=== PATIENT | male | born 1950 | race Caucasian/White ===

== ENCOUNTER 2016-10-21 00:47 | Observation (INO) | payer MEDICARE, OTHER ==
--- NOTE | 2016-10-21 02:04 | ED PDOC ---
HPI: Chest Pain Time Seen by Provider: 10/21/16 00:56 Chief Complaint (Nursing): Chest Pain History Per: Patient History/Exam Limitations: no limitations Onset/Duration Of Symptoms: Mins (5) Current Symptoms Are (Timing): Gone Now Severity: Moderate Quality: "Pain" Associated Symptoms: Nausea. denies: Dyspnea, Diaphoresis, Syncope Modifying Factors: None Exacerbating Factors: None Alleviating Factors: None Additional History Per: Patient Additional Complaint(s): 66 y/o male with PMHx HTN, DM, CAD with 4-vessel CABG years ago, who complains of anterior chest pain x5 minutes and bilateral arm pain that presented 20 minutes ago and is now totally resolved. He complains of some mild persisting nausea that presented with the chest pain. Pain presented suddenly and was not associated with shortness of breath, back pain, abdominal pain, diarrhea, or syncope. No other complaints at this time. Past Medical History Vital Signs: Last Vital Signs Temp 97.5 F L 10/21/16 00:54 Pulse 75 10/21/16 02:45 Resp 16 10/21/16 00:54 BP 161/101 H 10/21/16 00:54 Pulse Ox 100 10/21/16 02:45 - Medical History PMH: CAD, HTN, Hyperlipidemia - Surgical History Surgical History: CABG, Coronary Stent - Family History Family History: States: Unknown Family Hx - Social History Current smoker - smoking cessation education provided: Yes Alcohol: None Drugs: Denies - Home Medications Home Medications: Ambulatory Orders Medication Instructions Recorded Atorvastatin [Lipitor] 20 mg PO DAILY 10/21/16 Clonazepam [Klonopin] 0.5 mg PO BID 10/21/16 Glimepiride [amaRYL] 2 mg PO DAILY 10/21/16 Lisinopril [Zestril] 5 mg PO DAILY 10/21/16 MetFORMIN [glucoPHAGE] 1,000 mg PO BID 10/21/16 Metoprolol Tartrate [Lopressor] 50 mg PO DAILY 10/21/16 Prasugrel [Effient] 10 mg PO DAILY 10/21/16 Ranolazine [Ranexa] 500 mg PO BID 10/21/16 - Allergies Allergies/Adverse Reactions: Allergies Allergy/AdvReac Type Severity Reaction Status Date / Time No Known Allergies Allergy Verified 02/25/15 03:14 AVA Risk Score for UA/NSTEMI - AVA Risk Score Age > 64: YES 3 or more CAD Risk Factors: YES Known CAD (Stenosis greater than 50%): NO Aspirin use in past 7 days: NO Severe Angina: NO EKG ST changes greater than 0.5mm: NO Positive Cardiac Marker: NO AVA Score: 2 Risk %: 8% Wells Criteria for PE - [place] Criteria for Pulmonary Embolism Clinical Signs and Symptoms of DVT: No P.E is #1 Diagnosis, or Equally Likely: No Heart Rate >100: No Immobilization at least 3 days;Surgery previous 4 weeks: No Previous, objectively diagnosed PE or DVT: No Hemoptysis: No Malignancy w/treatment within 6 months, or palliative: No Total Score: 0 Review of Systems ROS Statement: Except As Marked, All Systems Reviewed And Found Negative Constitutional: Negative for: Fever Cardiovascular: Positive for: Chest Pain Respiratory: Negative for: Shortness of Breath Gastrointestinal: Positive for: Nausea. Negative for: Vomiting, Abdominal Pain , Diarrhea Physical Exam - Reviewed Nursing Documentation Reviewed: Yes Vital Signs Reviewed: Yes - Physical Exam Appears: Positive for: Well, Non-toxic, No Acute Distress Head Exam: Positive for: ATRAUMATIC, NORMAL INSPECTION, NORMOCEPHALIC Skin: Positive for: Normal Color, Warm, DRY Eye Exam: Positive for: EOMI, Normal appearance, PERRL ENT: Positive for: Normal ENT Inspection Neck: Positive for: Normal, Painless ROM Cardiovascular/Chest: Positive for: Regular Rate, Rhythm Respiratory: Positive for: CNT, Normal Breath Sounds Gastrointestinal/Abdominal: Positive for: Normal Exam, Bowel Sounds, Soft Back: Positive for: Normal Inspection Extremity: Positive for: Normal ROM Neurologic/Psych: Positive for: Alert, Oriented - Laboratory Results Result Diagrams: 10/21/16 01:20 10/21/16 01:20 - ECG ECG Rhythm: Positive for: Normal QRS, Normal ST Segment, Sinus Rhythm. Negative for: ST/T Changes Interpretation Of ECG: EKG: NSR, rate 75. Normal QRS. Nonspecific T-Wave changes in lateral leads. Rate: 75 O2 Sat by Pulse Oximetry: 100 (RA) Pulse Ox Interpretation: Normal Medical Decision Making Medical Decision Making: Initial Impression: Acute Coronary Syndrome Initial Plan: - Labs - EKG - CXR - ASA 325 mg PO Scribe Attestation: Documented by Quynh Villalba, acting as a scribe for Onur Cisneros MD. MD Hillirad Attestation: All medical record entries made by the Arminda were at my direction and personally dictated by me. I have reviewed the chart and agree that the record accurately reflects my personal performance of the history, physical exam, medical decision making, and the department course for this patient. I have also personally directed, reviewed, and agree with the discharge instructions and disposition. Disposition - Clinical Impression Clinical Impression: Chest pain - Patient ED Disposition Is Patient to be Admitted: Yes Discussed With DrAle: Guillermina Nash Doctor Will See Patient In The: ED Counseled Patient/Family Regarding: Studies Performed, Diagnosis - Disposition Disposition Time: 03:36 Condition: FAIR - Pt Status Changed To: Hospital Disposition Of: Observation - POA Present On Arrival: Poor Glycemic Control Core Measure Indicators: Chest Pain
[2016-10-21 02:11] LABS: BASO % 0.5 % (0.0-2.0); EOS # 0.1 K/uL (0.0-0.7); EOS % 1.9 % (0.0-4.0); HEMATOCRIT 48.2 % (35.0-51.0); LYMPH # 2.7 K/uL (1.0-4.3); LYMPH % 38.4 % (20.0-40.0); MEAN CELL VOLUME 89.7 fl (80.0-94.0); MEAN CORPUSCULAR HGB CONC 33.4 g/dL (33.0-37.0); MEAN PLATELET VOLUME 10.1 fl (7.2-11.7); MONO # 0.6 K/uL (0.0-0.8); MONO % 8.9 % (0.0-10.0); NEUT # 3.5 K/uL (1.8-7.0); NEUT % 50.3 % (50.0-75.0); RED CELL DISTRIBUTION WIDTH 12.9 % (11.5-14.5)
[2016-10-21 02:19] LABS: CHLORIDE 103 mmol/L (98-107)
[2016-10-21 02:20] LABS: SODIUM 140 mmol/l (132-148)
[2016-10-21 02:23] LABS: BLOOD UREA NITROGEN 16 mg/dl (9-20); CARBON DIOXIDE 23 mmol/L (22-30); GFR AFRICAN-AMERICAN > 60; GLUCOSE,RANDOM 244 mg/dL (75-110)
[2016-10-21 03:32] LABS: BLOOD UREA NITROGEN 16 mg/dl (9-20); CARBON DIOXIDE 23 mmol/L (22-30); CHLORIDE 106 mmol/L (98-107); GFR AFRICAN-AMERICAN > 60; GLUCOSE,RANDOM 231 mg/dL (75-110); POTASSIUM 4.5 MMOL/L (3.6-5.0); SODIUM 143 mmol/l (132-148)
[2016-10-21 04:04] LABS: POTASSIUM 5.3 MMOL/L (3.6-5.0)
--- NOTE | 2016-10-21 04:53 | CP.PCM.HP ---
History of Present Illness - History of Present Illness History of Present Illness: CC: Chest pain HPI: This is a 66 y/o male with MHx significant for HTN, DM2, and known CAD with CABG and stenting in the past who came to the ER this evening about half an hour after an episode of CP. Per patient, the CP lasted about 5 min and was associated with b/l pain in arms as well as nausea. There was no SOB/ palpitations/diaphoresis, but the nausea persisted. Denies other symptoms like cough f/c/n/v/d. ROS: 14 systems reviewed, negative other than HPI MHx: HTN, DM2, CAD SHx: CABG Allergies: NKDA Medications: As per med rec Family Hx: Patient does not provide any relevant family hx Social Hx: Lives with family, denies tobacco or EtOH Surrogate Decision Maker: Brother, contact info in chart Present on Admission - Present on Admission Any Indicators Present on Admission: No Past Patient History - Infectious Disease Hx of Infectious Diseases: None - Past Social History Alcohol: None Drugs: Denies - CARDIAC Hx Hypertension: Yes - NEUROLOGICAL Hx Neurological Disorder: Yes HX Cerebrovascular Accident: Yes - ENDOCRINE/METABOLIC Hx Endocrine Disorders: Yes Hx Diabetes Mellitus Type 1: Yes - PSYCHIATRIC Hx Substance Use: No - SURGICAL HISTORY Hx Coronary Artery Bypass Graft: Yes Hx Coronary Stent: Yes - ANESTHESIA Hx Anesthesia: Yes Hx Anesthesia Reactions: No Meds Allergies/Adverse Reactions: Allergies Allergy/AdvReac Type Severity Reaction Status Date / Time No Known Allergies Allergy Verified 02/25/15 03:14 Physical Exam - Constitutional Appears: No Acute Distress - Head Exam Head Exam: ATRAUMATIC, NORMOCEPHALIC - Eye Exam Eye Exam: EOMI, PERRL - ENT Exam ENT Exam: Mucous Membranes Moist - Neck Exam Neck exam: Positive for: Full Rom - Respiratory Exam Respiratory Exam: Clear to Auscultation Bilateral, NORMAL BREATHING PATTERN - Cardiovascular Exam Cardiovascular Exam: REGULAR RHYTHM, +S1, +S2 - GI/Abdominal Exam GI & Abdominal Exam: Normal Bowel Sounds, Soft - Extremities Exam Extremities exam: Positive for: full ROM, normal inspection - Neurological Exam Neurological exam: Alert, CN II-XII Intact, Oriented x3 - Psychiatric Exam Psychiatric exam: Normal Affect, Normal Mood - Skin Skin Exam: Dry, Warm Results - Vital Signs Recent Vital Signs: Last Vital Signs Temp 97.5 F L 10/21/16 00:54 Pulse 82 04/03/17 03:50 Resp 16 10/21/16 03:50 BP 150/98 H 10/21/16 03:50 Pulse Ox 99 10/21/16 03:50 - Labs Result Diagrams: 10/21/16 01:20 10/21/16 02:47 - EKG Data EKG Interpreted by: Myself EKG shows normal: Sinus rhythm Rate: Normal - EKG Data EKG comments: lateral TWI - Imaging and Cardiology Chest x-ray Status: Image reviewed by me (Unremarkable) Assessment & Plan (1) Chest pain Assessment and Plan: 66 y/o male with known CAD who comes in with CP. 1) Chest pain/CAD -Obs tele -Serial trops and EKG -Will obtain echo, as no recent one on chart -Cont ASA, Statin, b-brinda, prasugrel, ranexa; prn nitro -Cardiology consult 2) HTN -- cont home medications 3) DM2 -- cont home medications, dm2 diet, SSI 4) DVT PPx -- SQ Heparin Status: Acute (2) HTN (hypertension) Status: Acute (3) DM2 (diabetes mellitus, type 2) Status: Acute (4) DVT prophylaxis Status: Acute
[2016-10-21] MEDS: GlipiZIDE 5 mg SR Tab PO SCH (08:03)
--- NOTE | 2016-10-21 08:26 | CARD ---
APPROVED REPORT EKG Measurement Heart [id number] <Conclusion> Normal sinus rhythm ST & T wave abnormality, consider inferolateral ischemia Abnormal ECG
[2016-10-21] MEDS: Insulin Lispro (humaLOG) 100 Units/ml Inj SC SCH ×5 (08:30→22:04)
--- NOTE | 2016-10-21 08:35 | CARD ---
APPROVED REPORT EKG Measurement Heart [id number] <Conclusion> Normal sinus rhythm T wave abnormality, consider lateral ischemia Abnormal ECG
[2016-10-21] MEDS: Enoxaparin 40 mg Syringe SC SCH (08:49)
[2016-10-21] MEDS ORDERED: Patient's Own Med (Ranolazine [Ranexa] 500 MG) PO SCH (09:00)
--- NOTE | 2016-10-21 09:11 | CP.PCM.CON ---
History of Present Illness - History of Present Illness History of Present Illness: HPI: This is a 66 y/o male with MHx significant for HTN, DM2, and known CAD with CABG and stenting in the past who came to the ER this evening about half an hour after an episode of CP. the CP lasted about 5 min and was associated with b/l pain in arms as well as nausea. There was no SOB/palpitations/diaphoresis, but the nausea persisted. Denies other symptoms like cough f/c/n/v/d. Troponin: neg x 3 EKG: NSR no change from EKG of 2015 PMH: HTN, DM2, CAD CABG Past Patient History - Infectious Disease Hx of Infectious Diseases: None - Past Social History Alcohol: None Drugs: Denies - CARDIAC Hx Hypertension: Yes - NEUROLOGICAL Hx Neurological Disorder: Yes HX Cerebrovascular Accident: Yes - ENDOCRINE/METABOLIC Hx Endocrine Disorders: Yes Hx Diabetes Mellitus Type 1: Yes - PSYCHIATRIC Hx Substance Use: No - SURGICAL HISTORY Hx Coronary Artery Bypass Graft: Yes Hx Coronary Stent: Yes - ANESTHESIA Hx Anesthesia: Yes Hx Anesthesia Reactions: No Meds Home Medications: Home Medication List Medication Instructions Recorded Confirmed Type Aspirin [Adult Low Dose Aspirin EC] 81 mg PO DAILY #1 tablet. 10/22/16 Rx Lisinopril [Zestril] 10 mg PO DAILY tab 10/22/16 Rx Ranolazine [Ranexa] 1,000 mg PO BID 10/22/16 Rx Allergies/Adverse Reactions: Allergies Allergy/AdvReac Type Severity Reaction Status Date / Time No Known Allergies Allergy Verified 02/25/15 03:14 - Medications Medications: Current Medications Aspirin (Aspirin) 325 mg PO DAILY [facility] Last Admin: 10/21/16 08:53 Dose: Not Given Atorvastatin Calcium (Lipitor) 20 mg PO DAILY [facility] Last Admin: 10/21/16 08:50 Dose: 20 mg Clonazepam (Klonopin) 0.5 mg PO BID [facility] Last Admin: 10/21/16 08:48 Dose: 0.5 mg Enoxaparin Sodium (Lovenox) 40 mg SC DAILY [facility] PRN Reason: Protocol Last Admin: 10/21/16 08:49 Dose: 40 mg Glipizide (Glucotrol Xl) 5 mg PO BRK [facility] Last Admin: 10/21/16 08:03 Dose: 5 mg Home Med (Prasugrel [Effient]) 10 mg PO DAILY [facility] Home Med (Ranolazine [Ranexa]) 500 mg PO BID [facility] Insulin Human Lispro (Humalog) 0 units SC ACHS [facility] PRN Reason: Protocol Last Admin: 10/21/16 08:30 Dose: 1 unit Lisinopril (Zestril) 5 mg PO DAILY [facility] Last Admin: 10/21/16 08:49 Dose: 5 mg Metformin HCl (Glucophage) 1,000 mg PO BID [facility] Last Admin: 10/21/16 08:48 Dose: 1,000 mg Metoprolol Tartrate (Lopressor) 50 mg PO DAILY [facility] Last Admin: 10/21/16 08:53 Dose: 50 mg Nitroglycerin (Nitrostat Sl Tab) 0.4 mg SL Q5M PRN PRN Reason: CP Results - Vital Signs Recent Vital Signs: Last Vital Signs Temp 98.6 F 10/21/16 07:20 Pulse 68 10/21/16 07:20 Resp 20 10/21/16 07:20 BP 135/89 10/21/16 07:20 Pulse Ox 98 10/21/16 07:20 - Labs Result Diagrams: 10/22/16 05:40 10/22/16 05:40
--- NOTE | 2016-10-21 10:36 | RAD ---
HISTORY: chest pain COMPARISON: Comparison is made to 02/25/2015 FINDINGS: LUNGS: No active pulmonary disease. PLEURA: No significant pleural effusion identified, no pneumothorax apparent. CARDIOVASCULAR: Normal. OSSEOUS STRUCTURES: No significant abnormalities. VISUALIZED UPPER ABDOMEN: Normal. OTHER FINDINGS: None. IMPRESSION: No active disease.
--- NOTE | 2016-10-21 16:35 | CARD ---
APPROVED REPORT EXAM: Two-dimensional and M-mode echocardiogram with Doppler and color Doppler. Other Information Quality : GoodRhythm : NSR Technically limited study due to body habitus. INDICATION Chest Pain 2D DIMENSIONS IVSd0.88 (0.7-1.1cm)LVDd4.83 (3.9-5.9cm) LVOT Diameter2.53 (1.8-2.4cm)PWd0.98 (0.7-1.1cm) IVSs1.69 (0.8-1.2cm)LVDs3.53 (2.5-4.0cm) FS (%) 26.9 %PWs1.31 (0.8-1.2cm) M-Mode DIMENSIONS Left Atrium (MM)3.50 (2.5-4.0cm)IVSd0.94 (0.7-1.1cm) Aortic Root3.91 (2.2-3.7cm)LVDd5.50 (4.0-5.6cm) Aortic Cusp Exc.1.75 (1.5-2.0cm)PWd1.34 (0.7-1.1cm) IVSs1.41 cmFS (%) 36 % LVDs3.50 (2.0-3.8cm)PWs1.50 cm Mitral Valve MV E Xzhvwnkd29.8cm/sMV DECEL [id number] A Rtptmrjn70.6cm/s MV [id number]/A ratio0.6MVA (PHT)2.19cm2 TDI Lateral E' Peak V7.41cm/sMedial E' Peak V4.32cm/sE/Lateral E'5.9 E/Medial E'10.1 Pulmonary Valve PV Peak Dgofhrdn92.3cm/s LEFT VENTRICLE The left ventricle is normal size. There is mild concentric left ventricular hypertrophy on the 2D study. Left ventricle systolic function is mildly impaired. The Ejection Fraction is - 45%. The inferior and posterior win are very hypokinetic. The other segments of the left ventricle have good contraction. Transmitral Doppler flow pattern is Grade I-abnormal relaxation pattern. No left ventricle thrombus noted on this study. There is no ventricular septal defect visualized. There is no left ventricular aneurysm. There is no mass noted in the left ventricle. RIGHT VENTRICLE The right ventricle is normal size. There is normal right ventricular wall thickness. The right ventricular systolic function is normal. ATRIA The left atrium is mildly dilated on the 2 d study. There is no thrombus suspected in the left atrium. The right atrium size is normal. The interatrial septum is intact with no evidence for an atrial septal defect. AORTIC VALVE The aortic valve is normal in structure and function. No aortic regurgitation is present. There is no aortic valvular stenosis. MITRAL VALVE The mitral valve is normal in structure and function. There is no evidence of mitral valve prolapse. There is no mitral valve stenosis. There is no mitral valve regurgitation noted. TRICUSPID VALVE The tricuspid valve is normal in structure and function. There is trace tricuspid regurgitation. There is no tricuspid valve prolapse or vegetation. There is no tricuspid valve stenosis. PULMONIC VALVE The pulmonary valve is normal in structure and function. There is no pulmonic valvular regurgitation. GREAT VESSELS The aortic root is normal in size. The IVC is normal in size and collapses >50% with inspiration. PERICARDIAL EFFUSION small anterior echo free space There is no pleural effusion. <Conclusion> The left ventricle is normal size. There is mild concentric left ventricular hypertrophy on the 2D study. Left ventricle systolic function is mildly impaired with a LVEF of - 45%. The left atrium is mildly dilated on the 2D study. The mitral, aortic and tricuspid valves are normal. There is trace tricuspid regurgitation.
--- NOTE | 2016-10-21 20:17 | CP.PCM.CON ---
History of Present Illness - History of Present Illness History of Present Illness: CC: Chest pain. HPI: ThisIs a pleasant 66 your gentleman with a past medical history of coronary artery disease, coronary artery bypass surgery, percutaneous coronary intervention, hypertension, diabetes and dyslipidemia who presents with chronic left sided chest pain which is not related to exertion, effort, position or respiration. He does not use nitrates since his insurance does not cover it but does use Ranexa with some relief. He states that this pain has persisted for nearly 2 years since his PCI and cannot find significant relief. He recently travelled to the [facility] and states he was compliant with his medications and diet. An ECG reveals NSR, lateral T wave abnormality, cardiac troponin is negative. He is resting comfortably at the present time but still has pain. Review of Systems - Constitutional Constitutional: Fatigue - EENT Additional comments: Negative. - Cardiovascular Cardiovascular: Chest Pain at Rest, Chest Pain with Activity, Dyspnea, Dyspnea on Exertion - Respiratory Respiratory: Dyspnea, Dyspnea on Exertion - Gastrointestinal Additional comments: Negative. - Genitourinary Additional comments: Negative. - Musculoskeletal Additional comments: Negative. - Integumentary Additional comments: Negative. - Neurological Additional comments: Negative. - Endocrine Endocrine: Fatigue - Hematologic/Lymphatic Additional comments: Negative. Past Patient History - Infectious Disease Hx of Infectious Diseases: None - Past Medical History & Family History Past Medical History?: Yes - Past Social History Smoking Status: Former Smoker Alcohol: None Drugs: Denies - CARDIAC Hx Cardiac Disorders: Yes Hx Angina: Yes Hx Circulatory Problems: Yes Hx Internal Defibrillator: No Hx Pacemaker: No - PULMONARY Hx Respiratory Disorders: No - NEUROLOGICAL Hx Neurological Disorder: Yes - HEENT Hx HEENT Problems: No - RENAL Hx Chronic Kidney Disease: No - ENDOCRINE/METABOLIC Hx Endocrine Disorders: Yes - HEMATOLOGICAL/ONCOLOGICAL Hx Blood Disorders: No - INTEGUMENTARY Hx Dermatological Problems: No - MUSCULOSKELETAL/RHEUMATOLOGICAL Hx Musculoskeletal Disorders: No - GENITOURINARY/GYNECOLOGICAL Hx Genitourinary Disorders: No - PSYCHIATRIC Hx Psychophysiologic Disorder: No - SURGICAL HISTORY Hx Cardiac Catheterization: Yes Hx Coronary Artery Bypass Graft: Yes Hx Coronary Stent: Yes - ANESTHESIA Hx Anesthesia: Yes Hx Anesthesia Reactions: No Meds Allergies/Adverse Reactions: Allergies Allergy/AdvReac Type Severity Reaction Status Date / Time No Known Allergies Allergy Verified 02/25/15 03:14 - Medications Medications: Current Medications Aspirin (Aspirin) 325 mg PO DAILY [facility] Last Admin: 10/21/16 08:53 Dose: Not Given Atorvastatin Calcium (Lipitor) 20 mg PO DAILY [facility] Last Admin: 10/21/16 08:50 Dose: 20 mg Clonazepam (Klonopin) 0.5 mg PO BID [facility] Last Admin: 10/21/16 17:45 Dose: 0.5 mg Enoxaparin Sodium (Lovenox) 40 mg SC DAILY [facility] PRN Reason: Protocol Last Admin: 10/21/16 08:49 Dose: 40 mg Glipizide (Glucotrol Xl) 5 mg PO BRK [facility] Last Admin: 10/21/16 08:03 Dose: 5 mg Home Med (Prasugrel [Effient]) 10 mg PO DAILY [facility] Home Med (Ranolazine [Ranexa]) 500 mg PO BID [facility] Insulin Human Lispro (Humalog) 0 units SC ACHS [facility] PRN Reason: Protocol Last Admin: 10/21/16 17:42 Dose: 1 unit Lisinopril (Zestril) 5 mg PO DAILY [facility] Last Admin: 10/21/16 08:49 Dose: 5 mg Metformin HCl (Glucophage) 1,000 mg PO BID [facility] Last Admin: 10/21/16 17:42 Dose: 1,000 mg Metoprolol Tartrate (Lopressor) 50 mg PO DAILY [facility] Last Admin: 10/21/16 08:53 Dose: 50 mg Nitroglycerin (Nitrostat Sl Tab) 0.4 mg SL Q5M PRN PRN Reason: CP Physical Exam - Constitutional Appears: Well, Non-toxic, No Acute Distress - Head Exam Head Exam: ATRAUMATIC, NORMAL INSPECTION, NORMOCEPHALIC - Eye Exam Eye Exam: Normal appearance Pupil Exam: PERRL - ENT Exam ENT Exam: Mucous Membranes Moist, Normal Exam - Neck Exam Neck exam: Positive for: Normal Inspection - Respiratory Exam Respiratory Exam: Clear to Auscultation Bilateral, NORMAL BREATHING PATTERN - Cardiovascular Exam Cardiovascular Exam: REGULAR RHYTHM, +S1, +S2, Systolic Murmur - GI/Abdominal Exam GI & Abdominal Exam: Soft - Rectal Exam Rectal Exam: Deferred - Extremities Exam Extremities exam: Positive for: normal inspection - Back Exam Back exam: NORMAL INSPECTION - Neurological Exam Neurological exam: Alert, Oriented x3 - Psychiatric Exam Psychiatric exam: Anxious, Depressed - Skin Skin Exam: Dry, Intact, Warm Results - Vital Signs Recent Vital Signs: Last Vital Signs Temp 98.4 F 10/21/16 19:47 Pulse 67 10/21/16 19:47 Resp 20 10/21/16 19:47 BP 157/88 H 10/21/16 19:47 Pulse Ox 96 10/21/16 19:47 - Labs Result Diagrams: 10/21/16 01:20 10/21/16 02:47 Labs: Laboratory Results - last 24 hr 10/21/16 10/21/16 10/21/16 08:03 11:13 16:57 POC Glucose (mg/dL) 223 H 154 H Troponin I 0.0740 Assessment & Plan - Assessment and Plan (Free Text) Assessment: Chest pain Coronary artery disease S/p CABG S/p PCI Hypertension Diabetes Dyslipidemia Plan: Aspirin Effient Ranexa Continue antihypertensive medications Stable cardiac sepulveda for discharge if troponins negative Case d/w Dr. Camargo who agrees Thank you - Date & Time Date: 10/21/16 Time: 13:05
[2016-10-22 00:13] VITALS: RESP 18
[2016-10-22] MEDS: Insulin Lispro (humaLOG) 100 Units/ml Inj SC SCH (06:58)
[2016-10-22 07:13] LABS: BASO % 0.4 % (0.0-2.0); EOS # 0.1 K/uL (0.0-0.7); EOS % 1.6 % (0.0-4.0); HEMATOCRIT 46.2 % (35.0-51.0); LYMPH # 3.1 K/uL (1.0-4.3); LYMPH % 40.7 % (20.0-40.0); MEAN CELL VOLUME 89.7 fl (80.0-94.0); MEAN CORPUSCULAR HEMOGLOBIN 29.2 pg (27.0-31.0); MEAN CORPUSCULAR HGB CONC 32.5 g/dL (33.0-37.0); MEAN PLATELET VOLUME 9.7 fl (7.2-11.7); MONO # 0.7 K/uL (0.0-0.8); MONO % 9.5 % (0.0-10.0); NEUT # 3.7 K/uL (1.8-7.0); NEUT % 47.8 % (50.0-75.0); NRBC % 0.1 % (0.0-0.0); RED CELL DISTRIBUTION WIDTH 13.1 % (11.5-14.5); WHITE BLOOD COUNT 7.6 K/uL (4.8-10.8)
[2016-10-22 07:17] LABS: BLOOD UREA NITROGEN 16 mg/dl (9-20); CALCIUM 9.1 mg/dL (8.4-10.2); CARBON DIOXIDE 22 mmol/L (22-30); CHLORIDE 104 mmol/L (98-107); CHOLESTEROL 171 mg/dL (0-199); GFR AFRICAN-AMERICAN > 60; GLUCOSE,RANDOM 163 mg/dL (75-110); POTASSIUM 4.2 MMOL/L (3.6-5.0); SODIUM 142 mmol/l (132-148)
[2016-10-22 07:22] LABS: PARTIAL THROMBOPLASTIN TIME 26.9 SECONDS (23.3-32.5)
[2016-10-22 07:57] VITALS: BP 159/89; PULSE 65; TEMP 98.5; O2SAT 96
[2016-10-22] MEDS ORDERED: Patient's Own Med (Ranolazine [Ranexa] 1,000 MG) PO SCH (08:00)
[2016-10-22] MEDS: GlipiZIDE 5 mg SR Tab PO SCH (09:00)
[2016-10-22] MEDS: Enoxaparin 40 mg Syringe SC SCH (10:00)
--- NOTE | 2016-10-22 10:21 | CP.PCM.DIS ---
Provider - Provider Date of Admission: 10/21/16 03:35 Attending physician: Guillermina Nash MD Consults: Cardio: Dr Trinidad/Reinaldo Time Spent in preparation of Discharge (in minutes): 35 Diagnosis - Discharge Diagnosis (1) Chest pain Status: Acute (2) CAD (coronary artery disease) Status: Chronic (3) DM2 (diabetes mellitus, type 2) Status: Chronic (4) HTN (hypertension) Status: Acute (5) DVT prophylaxis Status: Acute Hospital Course - Lab Results Lab Results: Most Recent Lab Values WBC 7.6 K/uL (4.8-10.8) 10/22/16 05:40 RBC 5.15 Mil/uL (4.40-5.90) 10/22/16 05:40 Hgb 15.0 g/dL (12.0-18.0) 10/22/16 05:40 Hct 46.2 % (35.0-51.0) 10/22/16 05:40 MCV 89.7 fl (80.0-94.0) 10/22/16 05:40 MCH 29.2 pg (27.0-31.0) 10/22/16 05:40 MCHC 32.5 g/dL (33.0-37.0) L 10/22/16 05:40 RDW 13.1 % (11.5-14.5) 10/22/16 05:40 Plt Count 181 K/uL (130-400) 10/22/16 05:40 MPV 9.7 fl (7.2-11.7) 10/22/16 05:40 Neut % (Auto) 47.8 % (50.0-75.0) L 10/22/16 05:40 Lymph % (Auto) 40.7 % (20.0-40.0) H 10/22/16 05:40 [place] % (Auto) 9.5 % (0.0-10.0) 10/22/16 05:40 Eos % (Auto) 1.6 % (0.0-4.0) 10/22/16 05:40 Baso % (Auto) 0.4 % (0.0-2.0) 10/22/16 05:40 Neut # 3.7 K/uL (1.8-7.0) 10/22/16 05:40 Lymph # 3.1 K/uL (1.0-4.3) 10/22/16 05:40 [place] # 0.7 K/uL (0.0-0.8) 10/22/16 05:40 Eos # 0.1 K/uL (0.0-0.7) 10/22/16 05:40 Baso # 0.0 K/uL (0.0-0.2) 10/22/16 05:40 PT 10.7 SECONDS (9.6-11.2) 10/22/16 05:40 INR 1.03 (0.92-1.08) 10/22/16 05:40 APTT 26.9 SECONDS (23.3-32.5) 10/22/16 05:40 Sodium 142 mmol/l (132-148) 10/22/16 05:40 Potassium 4.2 MMOL/L (3.6-5.0) 10/22/16 05:40 Chloride 104 mmol/L (98-107) 10/22/16 05:40 Carbon Dioxide 22 mmol/L (22-30) 10/22/16 05:40 Anion Gap 20 (10-20) 10/22/16 05:40 BUN 16 mg/dl (9-20) 10/22/16 05:40 Creatinine 0.8 mg/dL (0.8-1.5) 10/22/16 05:40 Est GFR ( Amer) > 60 10/22/16 05:40 Est GFR (Non-Af Amer) > 60 10/22/16 05:40 POC Glucose (mg/dL) 171 mg/dL (65-110) H 10/22/16 05:24 Random Glucose 163 mg/dL (75-110) H 10/22/16 05:40 Calcium 9.1 mg/dL (8.4-10.2) 10/22/16 05:40 Troponin I 0.0740 ng/mL (0.00-0.120) 10/21/16 08:03 Triglycerides 141 mg/DL (0-149) 10/22/16 05:40 Cholesterol 171 mg/dL (0-199) 10/22/16 05:40 LDL Cholesterol Direct 121 mg/dL (0-129) 10/22/16 05:40 HDL Cholesterol 31 MG/DL (30-70) 10/22/16 05:40 - Hospital Course Hospital Course: 66 y/o gent with known hx of HTN, DM, CAD s/p CABG and Stent came in because of chest pain. Patient was observed in Tele. EKG done did not show any acute change. Troponin x 3 negative. ECHO: 45% EF, Inf and Post wall hypokinesia. No abn rhythm on Tele. Cardio: Dr Najera consulted - rec to increase Ranexa dose to 1000mg bid . Pt' s chest pain resolved , cleared by Cardio for discahrge. (1) Chest pain , ACS ruled out however needs further cardiac work up Pt has hx of CAD s/p CABG and Stent -Cont ASA, Statin, b-brinda, prasugrel, ranexa; prn nitro -Cardiology consulted- rec increase Ranexa dose to 1000 bid - ff up with Dr Amos liu for further cardiac work up as outpt (2) HTN (hypertension) uncontrolled Status: Acute increase Lisinopril to 10 mg daily cont Metoprolol (3) DM2 (diabetes mellitus, type 2) Status: Acute accucheck cont Amaryl and Metformin (4) DVT prophylaxis Status: Acute Heparin Discharge Exam - Head Exam Head Exam: ATRAUMATIC, NORMAL INSPECTION, NORMOCEPHALIC - Eye Exam Eye Exam: EOMI, Normal appearance Pupil Exam: NORMAL ACCOMODATION - ENT Exam ENT Exam: Mucous Membranes Moist, Normal External Ear Exam - Neck Exam Neck exam: Full Rom - Respiratory Exam Respiratory Exam: NORMAL BREATHING PATTERN. absent: Respiratory Distress - Cardiovascular Exam Cardiovascular Exam: REGULAR RHYTHM, +S1, +S2 - GI/Abdominal Exam GI & Abdominal Exam: Normal Bowel Sounds, Soft. absent: Tenderness - Extremities Exam Extremities exam: normal capillary refill, pedal pulses present - Back Exam Back exam: FULL ROM. absent: CVA tenderness (L), CVA tenderness (R) - Neurological Exam Neurological exam: Alert, CN II-XII Intact, Oriented x3, Reflexes Normal - Psychiatric Exam Psychiatric exam: Normal Affect, Normal Mood - Skin Skin Exam: Dry, Normal Color, Warm Discharge Plan - Discharge Medications Prescriptions: Aspirin [Adult Low Dose Aspirin EC] 81 mg PO DAILY #1 tablet.dr - Follow Up Plan Condition: GOOD Disposition: HOME/ ROUTINE Instructions: Chest Pain (DC), Hypertension (DC) Additional Instructions: ff up with Dr Amos liu this week- further cardiac work up as outpt Increase Lisinopril to 10mg daily increase Ranexa to 1000mg bid Referrals: Omar French MD [Staff Provider] -
== END 2016-10-22 12:10 | disposition home or self-care (01) ==
LOC: H.ER 00:47 → H.ERHOLD 03:35 → H.TEL 09:02
PROVIDERS: ADMIT Internal Medicine; ATTEND Internal Medicine
DX: R07.9 Chest pain, unspecified (principal); I10 Essential (primary) hypertension; I25.10 Atherosclerotic heart disease of native coronary artery without angina pectoris; Z95.1 Presence of aortocoronary bypass graft; Z95.5 Presence of coronary angioplasty implant and graft; E78.5 Hyperlipidemia, unspecified; F17.200 Nicotine dependence, unspecified, uncomplicated; E11.9 Type 2 diabetes mellitus without complications; Z86.73 Personal history of transient ischemic attack (TIA), and cerebral infarction without residual deficits
CPT/HCPCS: 36415; 71010; 80048; 80061; 82948; 84484; 85025; 85610; 85730; 93005; 93306; 96372; 99284; G0378; J1650

== ENCOUNTER 2017-04-07 17:16 | Emergency (ER) | payer MEDICARE, OTHER ==
[2017-04-07 17:45] VITALS: BP 127/71; PULSE 89; RESP 16; TEMP 98.5; O2SAT 99
--- NOTE | 2017-04-07 19:00 | ED PDOC ---
HPI: Male Pain Time Seen by Provider: 04/07/17 17:58 Chief Complaint (Nursing): Male Genitourinary Chief Complaint (Provider): Urinary symptoms History Per: Patient History/Exam Limitations: no limitations Onset/Duration Of Symptoms: Days Current Symptoms Are (Timing): Still Present Severity: Moderate Quality Of Discomfort: "Pain" Associated Symptoms: Urinary Symptoms Additional History Per: Patient Additional Complaint(s): The patient is a 66yo male with past medical history of diabetes, presents to the ED for evaluation of dysuria, frequency for the past two weeks. Patietn states he visited his PCP for these complaints and was given Flomax; additionally states he had a prostate exam but does not have the results. Patient presents today because of continued urinary symptoms as well as redness and irritation to the glans of his penis. He denies any fever, chills, back pain , testicular pain or swelling. He offers no additional medical complaints. Past Medical History Reviewed: Historical Data, Nursing Documentation, Vital Signs Vital Signs: Last Vital Signs Temp 98.5 F 04/07/17 17:43 Pulse 89 04/07/17 17:43 Resp 16 04/07/17 17:43 BP 127/71 04/07/17 17:43 Pulse Ox 99 04/07/17 17:43 - Medical History PMH: CAD, HTN, Hyperlipidemia Denies: Chronic Kidney Disease - Surgical History Surgical History: CABG, Coronary Stent Denies: Pacemaker - Family History Family History: States: Unknown Family Hx - Home Medications Home Medications: Ambulatory Orders Medication Instructions Recorded Atorvastatin [Lipitor] 20 mg PO DAILY 10/21/16 Clonazepam [Klonopin] 0.5 mg PO BID 10/21/16 Glimepiride [amaRYL] 2 mg PO DAILY 10/21/16 MetFORMIN [glucoPHAGE] 1,000 mg PO BID 10/21/16 Metoprolol Tartrate [Lopressor] 50 mg PO DAILY 10/21/16 Prasugrel [Effient] 10 mg PO DAILY 10/21/16 Aspirin [Adult Low Dose Aspirin EC] 81 mg PO DAILY #1 tablet. 10/22/16 Lisinopril [Zestril] 10 mg PO DAILY tab 10/22/16 Ranolazine [Ranexa] 1,000 mg PO BID 10/22/16 Nystatin [Mycostatin Cream] 1 applic TOP TID #1 tube 04/07/17 - Allergies Allergies/Adverse Reactions: Allergies Allergy/AdvReac Type Severity Reaction Status Date / Time No Known Allergies Allergy Verified 04/07/17 17:43 Review of Systems Constitutional: Negative for: Fever, Chills Genitourinary Male: Positive for: Dysuria, Frequency. Negative for: Penile Discharge, Scrotal Pain Physical Exam - Reviewed Nursing Documentation Reviewed: Yes Vital Signs Reviewed: Yes - Physical Exam Appears: Positive for: Non-toxic, No Acute Distress Head Exam: Positive for: ATRAUMATIC, NORMAL INSPECTION, NORMOCEPHALIC Skin: Positive for: Warm, Dry Neck: Positive for: Supple Cardiovascular/Chest: Positive for: Regular Rate, Rhythm Respiratory: Negative for: Respiratory Distress Gastrointestinal/Abdominal: Positive for: Soft. Negative for: Tenderness Male Genital Exam: Positive for: erythema (erythema to glans; patient is uncircumcised), lesions (no drainage or ulcerations noted). Negative for: scrotum tenderness (R), scrotum tenderness (L), testicular tenderness (R), testicular tenderness (L) Back: Negative for: L CVA Tenderness, R CVA Tenderness Neurologic/Psych: Positive for: Alert, Oriented - ECG O2 Sat by Pulse Oximetry: 99 (RA) Pulse Ox Interpretation: Normal Medical Decision Making Medical Decision Making: Time: 1800 Impression: Likely yeast infection, r/o UTI Plan: -- Urinalysis Reassess UA: shows glucose >500. will do FS. pt admits he did not take second dose of metformin. FS 380. Pt will be given metformin 1g (usual dose) pt states he does not want to stay for second FS read. Pt will be tx with nystatin for funfal infection and given diflucan 150mg Scribe Attestation: Documented by Kirstin Mcmahon acting as a scribe for KRYS Wharton Provider Attestation: All medical record entries made by the Scribe were at my direction and personally dictated by me. I have reviewed the chart and agree that the record accurately reflects my personal performance of the history, physical exam, medical decision making, and the department course for this patient. I have also personally directed, reviewed, and agree with the discharge instructions and disposition. Disposition - Clinical Impression Clinical Impression: Yeast infection, Elevated blood sugar - Patient ED Disposition Is Patient to be Admitted: No Counseled Patient/Family Regarding: Studies Performed, Diagnosis, Need For Followup, Rx Given - Disposition Referrals: [facility] [Outside] Disposition: Routine/Home Disposition Time: 19:43 Condition: STABLE Prescriptions: Nystatin [Mycostatin Cream] 1 applic TOP TID #1 tube Instructions: Skin Yeast Infection (ED) Print Language: MALTESE
[2017-04-07 19:11] LABS: RBC URINE 3 /hpf (0-3); URINE BILIRUBIN NEGATIVE (NEGATIVE); URINE BLOOD NEGATIVE (NEGATIVE); URINE COLOR YELLOW (YELLOW); URINE GLUCOSE (UA) >=500 mg/dL (Normal); URINE KETONE NEGATIVE (NEGATIVE); URINE LEUKOCYTE ESTERASE NEG Leu/uL (Negative); URINE PROTEIN NEGATIVE (NEGATIVE); URINE UROBILINOGEN 0.2-1.0 mg/dL (0.2-1.0); WBC URINE < 1 /hpf (0-5)
[2017-04-07] MEDS ORDERED: Fluconazole 150 MG TAB PO ONE (19:42)
== END 2017-04-07 20:07 | disposition home or self-care (01) ==
LOC: H.ER 17:16
DX: B37.9 Candidiasis, unspecified (principal); E11.65 Type 2 diabetes mellitus with hyperglycemia